=== PATIENT | male | born 1990 | race Caucasian/White ===

== ENCOUNTER 2018-02-10 07:45 | Emergency (ER) | payer OTHER ==
[~2018-02-10] VITALS: Ht 193 cm; Wt 84.0 kg
[~2018-02-10 07:45] MED LIST: IBUP800T23 PO; PRED50 PO; ZOVI800T13 PO
[2018-02-10 07:47] VITALS: BP 133/84; PULSE 88; RESP 16; TEMP 99.1; O2SAT 100
[2018-02-10] MEDS ORDERED: MUPI2%T TOPICAL (09:31)
[2018-02-10] MEDS ORDERED: BACT800T5 PO (09:31)
--- NOTE | 2018-02-10 09:31 | PD ---
HPI Chief Complaint: Skin Problem Time Seen by Provider: 09:07 Travel History International Travel<30 days: No Contact w/Intl Traveler<30days: No Traveled to known affect area: No History of Present Illness HPI 27-year-old male here with 2 open and draining abscesses to right suprapubic region. He denies fever or chills. He reports he noticed the areas approximately a week ago after shaving. Symptoms severity is mild. No aggravating or alleviating factors. PFSH Past Medical History Medical History: Denies Significant Hx Tetanus Vaccination: < 5 Years Past Surgical History Surgical History: No Previous Surgery Social History Alcohol Use: No Tobacco Use: Yes Substance Use: No Allergies-Medications (Allergen,Severity, Reaction): Coded Allergies: No Known Allergies (Unverified Adverse Reaction, Unknown, 02/10/18) Reported Meds & Prescriptions Reported Meds & Active Scripts Active Bactroban Topical (Mupirocin) 22 Gm Cream 1 Applic TOPICAL BID Bactrim DS (Sulfamethoxazole-Trimethoprim) 800-160 Mg Tab 1 Tab PO BID Review of Systems Except as stated in HPI: all other systems reviewed are Neg General / Constitutional: No: Fever Physical Exam Narrative GENERAL: Alert and well-appearing 27-year-old male SKIN: Warm and dry. 2 tender and indurated areas measuring 1 cm each with central scabs to the right suprapubic region. HEAD: Normocephalic. EYES: No injection or drainage. NECK: Supple GASTROINTESTINAL: Abdomen soft, non-tender, nondistended. Data Data Last Documented VS Vital Signs Date Time Temp Pulse Resp B/P (MAP) Pulse Ox O2 Delivery O2 Flow Rate FiO2 02/10/18 07:47 99.1 88 16 133/84 (100) 100 Orders Orders Ed Discharge Order (02/10/18 09:49) MDM Medical Decision Making Medical Screen Exam Complete: Yes Emergency Medical Condition: Yes Differential Diagnosis Abscess, folliculitis, cellulitis Narrative Course 27-year-old male here with 2 open and draining abscesses to right suprapubic region. The areas are indurated without fluctuance with central scabs. Incision and drainage was not warranted. Patient will be discharged home with Bactrim and instructed to apply warm compresses to the area. Follow-up with his doctor for recheck in 2 days Diagnosis Primary Impression: Abscess Referrals: Primary Care Physician Additional Instructions: Apply warm compresses to the area several times per day. Use the Bactroban ointment as directed. Antibiotics as directed. Follow-up with her primary doctor Scripts Mupirocin Topical (Bactroban Topical) 22 Gm Cream 1 APPLIC TOPICAL BID for Mgmt Bacterial Infection, #1 TUBE 0 Refills Prov: Lesia Nunez 02/10/18 Sulfamethoxazole-Trimethoprim (Bactrim DS) 800-160 Mg Tab 1 TAB PO BID for Infection, #20 TAB 0 Refills Prov: Lesia Nunez 02/10/18 Disposition: 01 DISCHARGE HOME Condition: Stable Lesia Nunez Feb 10, 2018 09:31
== END 2018-02-10 10:06 | disposition home or self-care (01) ==
LOC: NEPK 07:45
DX: N49.9 Inflammatory disorder of unspecified male genital organ (principal); Z72.0 Tobacco use
CPT/HCPCS: 99283